=== PATIENT | male | born 1975 | race Two or more races ===

== ENCOUNTER 2024-07-05 05:32 | Day surgery (SDC) | payer OTHER ==
[2024-06-24 09:50] VITALS: BP 136/80
[2024-06-24 11:09] LABS: HEMATOCRIT 46.5 % (39.0-48.0); HEMOGLOBIN 15.9 g/dL (13-16.00); MEAN CELL VOLUME 90.9 fL (80.0-100.00); MEAN CORPUSCULAR HEMOGLOBIN 31.1 pg (27.00-32.0); MEAN CORPUSCULAR HGB CONC 34.2 g/dl (32.0-36.0); PLATELET COUNT 179 K/uL (150-450); RED BLOOD COUNT 5.11 M/uL (4.00-6.00)
[2024-06-24 11:09] LABS: PH,URINE 5.5 (5.0-8.0); URINE APPEARANCE Clear; URINE BILIRRUBIN Negative (NEGATIVE); URINE BLOOD Negative; URINE COLOR Yellow; URINE GLUCOSE Negative (NEGATIVE); URINE KETONE Negative (NEGATIVE); URINE LEUKOCYTE Negative; URINE NITRATE Negative; URINE PROTEIN Negative (NEGATIVE); URINE UROBILINOGEN 0.2 E.U./dl
[2024-06-24 11:15] LABS: URINE EPITHELIAL CELLS 3.1 uL (0.0-38.8); URINE RBC 4.1 uL (0.0-20.8); URINE WBC 3.1 uL (0.0-23.2)
[2024-06-24 11:22] LABS: URINE BACTERIA 1.2 uL (0.0-1933); URINE CAST 0.29 uL (0.0-1.40)
[2024-06-24 11:28] LABS: INR 1.03; PARTIAL THROMBOPLASTIN TIME 29.8 SECONDS (22.0-34.0); PROTHROMBIN TIME 11.2 SECONDS (9.0-11.5)
[2024-06-24 11:49] LABS: BILIRUBIN TOTAL 0.62 mg/dL (0.3-1.2); CALCIUM 9.4 mg/dL (8.5-10.1); CREATININE SERUM 0.91 mg/dL (0.70-1.30); GFR 88.55; GLOBULINA 3.4 G/DL (2.4-3.5); POTASSIUM 4.42 mEq/L (3.5-5.1); TOTAL PROTEIN 7.4 gm/dL (6.4-8.2)
[~2024-07-05] VITALS: Ht 193 cm; Wt 74.8 kg
[~2024-07-05 05:32] MED LIST: RAMIPRIL10 MG
[2024-07-05] MEDS ORDERED: CEFTRIAXONE SODIUM 2,000 MG VIAL ONE (08:55)
[2024-07-05] MEDS ORDERED: METRONIDAZOLE/SODIUM CHLORIDE 500 MG/100 ML PIGGYBACK IV ONE (08:55)
[2024-07-05] MEDS ORDERED: HEMOSTATIC MATRIX 1 KIT KIT TOP ONE (09:45)
[2024-07-05] MEDS ORDERED: POVIDONE-IODINE 118 ML BOTT TOP ONE (09:45)
[2024-07-05] MEDS ORDERED: BUPIVACAINE HCL/PF 0.25% 30ML VIAL InF ONE (09:45)
[2024-07-05] MEDS ORDERED: LIDOCAINE HCL 1%/EPINEPHRINE 20ML VIAL IJ ONE (09:45)
[2024-07-05] MEDS ORDERED: DIBUCAINE 30 GM TUBE RECTAL ONE (09:45)
[2024-07-05] MEDS ORDERED: COLACE100 MG PO (11:08)
[2024-07-05] MEDS ORDERED: TRAM1TAB98 PO (11:08)
[2024-07-05] MEDS ORDERED: NEURONTIN300 MG PO (11:08)
== END 2024-07-05 13:50 | disposition home or self-care (01) ==
LOC: CIR.AMB 05:32
PROVIDERS: ATTEND Surgery
DX: D12.9 Benign neoplasm of anus and anal canal (principal); K64.8 Other hemorrhoids; K62.89 Other specified diseases of anus and rectum; A63.0 Anogenital (venereal) warts